=== PATIENT | male | born 1975 | race Two or more races ===

== ENCOUNTER 2018-12-08 10:51 | Emergency (ER) | payer OTHER ==
[~2018-12-08] VITALS: Ht 182.9 cm; Wt 127.0 kg
[2018-12-08 10:58] VITALS: BP 148/100
[2018-12-08] MEDS ORDERED: SILVER NITRATE APPLICATOR 1 EA BOX ONE (11:14)
--- NOTE | 2018-12-08 11:30 | NUR ---
Patient discharged to home in stable condition. Written and verbal after care instructions given. Patient verbalizes understanding of instruction.
== END 2018-12-08 11:31 | disposition home or self-care (01) ==
LOC: ER 10:58
DX: S61.215A Laceration without foreign body of left ring finger without damage to nail, initial encounter (principal); I10 Essential (primary) hypertension; W26.8XXA Contact with other sharp object(s), not elsewhere classified, initial encounter; Y93.89 Activity, other specified; Y92.89 Other specified places as the place of occurrence of the external cause; Y99.8 Other external cause status